=== PATIENT | male | born 1960 | race Caucasian/White ===

== ENCOUNTER 2021-09-17 08:32 | Day surgery (SDC) | payer MEDICAID, MEDICARE, OTHER ==
[~2021-09-17 08:32] MED LIST: Lactated Ringers 1,000 ML IV SCH
[2021-09-17] MEDS ORDERED: fentaNYL 100 MCG/2 ML SDV ONE ×2 (10:18→10:20)
[2021-09-17] MEDS ORDERED: Propofol 200 MG/20 ML SDV ONE ×2 (10:18→11:16)
[2021-09-17 11:50] VITALS: PULSE 65
[2021-09-17 12:08] VITALS: BP 115/79
--- NOTE | 2021-09-18 07:16 | OR ---
PREOPERATIVE DIAGNOSIS: History of colon polyps. Last colonoscopy was 2015 and he had 4 small polyps removed at that time. POSTOPERATIVE DIAGNOSES: 1. Single 3 mm polyp at 95 cm within the transverse colon. This was removed using cold forceps. 2. Area of some mild inflammation versus ischemia at 30 cm from the anal verge. This was located within the sigmoid colon. Cold biopsy x2 bites taken. The patient did say that last week he had a bout of very lower abdominal pain, felt like a twisting sensation. He no longer feels any discomfort lately. 3. Normal-appearing distal ileum. 4. Mild left-sided diverticulosis. PROCEDURE: Colonoscopy with polypectomy x1 using cold forceps and also cold biopsy x1 site (see above). SURGEON: Dru Sierra M.D. ANESTHESIA: Monitored anesthesia care. BOWEL PREP: Fair. DESCRIPTION OF PROCEDURE: Elieser is a 61-year-old male who was brought to the endoscopy suite after discussing risks and benefits of the procedure. Informed consent was obtained for conscious sedation and colonoscopy with or without biopsy and/or polypectomy. We also discussed possibility of missed lesions. Pre-procedure exam was unremarkable. IV, oxygen, and monitors were placed. The patient was placed in the left lateral decubitus position. Sedation was administered and a digital rectal exam was performed and unremarkable. Colonoscope was passed into the rectum and slowly advanced all the way to the cecum. Cecum was viewed and photographed. Ileocecal valve was intubated and distal ileum was normal in appearance. The colonoscope was slowly withdrawn and the mucosa was closed observed in a direct circumferential manner. The ascending colon revealed 3 mm polyp at 95 cm, which was removed using cold forceps. Transverse colon unremarkable. Descending colon unremarkable. Sigmoid colon revealed area of mild inflammation versus ischemia within the stretch of mild diverticulosis. This was located at 30 cm from the anal verge and cold biopsy x2 bites taken. Retroflexion was performed and rectal mucosa was unremarkable. Scope was removed. The patient tolerated the procedure well. The patient was monitored until that baseline status. Discharge instructions were reviewed and the patient was discharged in good condition. COMPLICATIONS: None. TOTAL TIME: 21 minutes. ESTIMATED BLOOD LOSS: Less than 1 mL. RECOMMENDATIONS/FOLLOWUP: We will await results of path report to determine ideal followup interval. I would like to kindly thank Dasia Vasquez for this referral. DMB: 09/17/2021 13:07:35 MODL: 09/17/2021 16:06:36 /[id number]
== END 2021-09-17 13:08 | disposition home or self-care (01) ==
LOC: VM.SDS 08:32
PROVIDERS: ATTEND Family Medicine
DX: Z12.11 Encounter for screening for malignant neoplasm of colon (principal); D12.3 Benign neoplasm of transverse colon; K57.30 Diverticulosis of large intestine without perforation or abscess without bleeding; E66.9 Obesity, unspecified; N18.32 Chronic kidney disease, stage 3b; E78.5 Hyperlipidemia, unspecified; G43.719 Chronic migraine without aura, intractable, without status migrainosus; Z79.899 Other long term (current) drug therapy; E78.00 Pure hypercholesterolemia, unspecified; Z87.891 Personal history of nicotine dependence; Z68.30 Body mass index [BMI] 30.0-30.9, adult
CPT/HCPCS: 00811; 88305; J2704; J3010; J7120